=== PATIENT | female | born 1985 | race Caucasian/White ===

== ENCOUNTER 2019-01-07 10:43 | Emergency (ER) | payer SELFPAY ==
[~2019-01-07] VITALS: Ht 165.1 cm; Wt 136.1 kg
--- OUTSIDE RECORDS SUMMARY | 2019-01-07 10:46 | XMS REPORT ---
Author Author [facility] Address Unknown Phone Unavailable Care Team Providers Care Fluoroscope Operator Name Role Phone Unavailable Unavailable Payers Payer Name Policy Type Policy Number Effective Date Expiration Date Problems This patient has no known problems. Allergies, Adverse Reactions, Alerts Allergy Name Allergy Type Status Severity Reaction(s) Onset Date Inactive Date Treating Clinician Comments erythromycin base DA Active U 2018-12-20 00:00:00 erythromycin base DA Active U 2018-09-06 00:00:00 erythromycin base DA Active U 2018-05-26 00:00:00 erythromycin base DA Active U 2016-06-12 00:00:00 Medications This patient has no known medications. Results Test Description Test Time Test Comments Text Results Atomic Results Result Comments - CT ABD PELVIS W/O CONT 2018-09-17 07:36:00 Name: MIKHAIL ROGERS [facility] : 1985 Age/S: 33 / F [address] [facility] Unit #: [id number] Loc: [place] [address] Phys: Javier Collins MD Acct: [id number] Dis Date: Status: REG ER PHONE #: [phone] Exam Date: 09/17/2018 0710 FAX #: [phone] Reason: Right sided abd pain. EXAMS: CPT CODE: [id number] CT ABD PELVIS W/O CONT 22104 EXAM: CT of the abdomen and pelvis without contrast; INFORMATION: Right flank pain; TECHNIQUE AND FINDINGS: CT dose reduction protocol; 2.5 mm axial scans through the abdomen and pelvis without contrast; renal stone protocol; The right kidney is enlarged and there is mild right-sided hydronephrosis and hydroureter. This is caused by a 4 mm stone in the distal right ureter, near the UVJ. The left kidney is unremarkable; there is no evidence of lef t hydronephrosis or left renal or ureteral stones. The liver is moderately enlarged; no focal hepatic lesions; no abnormalities of the biliary system; pancreas, spleen and adrenal glands are unremarkable. A small splenule is seen near the pancreatic tail. No pelvic mass lesions; no abnormal fluid collections. Lung bases are clear. IMPRESSION: 1. 4 mm distal right ureteral stone causing mild hydronephrosis. 2. Mild hepatomegaly. at 0736 Reported and signed by: Kam Berrios M.D. CC: Javier Collins MD Technologist:TYRONE WATTS(Yifan),RDMS,CT CTDI: DLP: Trnscb Date/Time: 09/17/2018 (07) [email or web address] Orig Print D/T: S: 09/17/2018 (0739) CTDI: DLP: PAGE 1 Signed Report BASIC METABOLIC PANEL 2018-09-17 07:26:00 SODIUM (test code=NA) 140 mmol/L 135-148 POTASSIUM (test code=K) 3.9 mmol/L 3.5-5.1 CHLORIDE (test code=CL) 103 mmol/L 101-109 CARBON DIOXIDE (test code=CO2) 26.7 mmol/L 21-32 ANION GAP (test code=GAP) 14 mmol/L 10-20 GLUCOSE (test code=GLU) 138 mg/dL 74-106 BLOOD UREA NITROGEN (test code=BUN) 9 mg/dL 3-21 GLOMERULAR FILTRATION RATE (test code=GFR) > 60 mL/min >=60 Estimated GFR by using Modified MDRD formula.Chronic kidney disease is defined as either kidney damageor GFR <60 mL/min/1.73 m2 for >3 months. CREATININE (test code=CREAT) 0.85 mg/dL 0.55-1.3 BUN/CREATININE RATIO (test code=BUN/CREA) 10.6 10-20 CALCIUM (test code=CA) 8.6 mg/dL 8.4-10.2 HEPATIC FUNCTION [id number] 07:26:00* Test Item Value Reference Range Comments TOTAL PROTEIN (test code=PROT) 6.9 g/dL 6.5-8.4 ALBUMIN (test code=ALB) 3.1 g/dL 3.4-4.8 GLOBULIN (test code=GLOB) 3.8 G/DL 1-10 ALBUMIN/GLOBULIN RATIO (test code=A/G) 0.8 RATIO 0.75-1.50 BILIRUBIN TOTAL (test code=BILT) 0.30 mg/dL 0.0-1.0 BILIRUBIN DIRECT (test code=BILD) 0.10 mg/dL 0.0-0.30 SGOT/AST (test code=AST) 12 U/L 6-32 SGPT/ALT (test code=ALT) 31 U/L 12-78 Note: Change in REFERENCE RANGE due to new reagent method. ALKALINE PHOSPHATASE TOTAL (test code=ALKP) 74 U/L 38-126 [id number] 07:26:00* Test Item Value Reference Range Comments LIPASE (test code=LIP) 89 U/L 128-270 BASIC METABOLIC [id number] 07:21:00* Test Item Value Reference Range Comments SODIUM (test code=NA) 140 mmol/L 135-148 POTASSIUM (test code=K) 3.9 mmol/L 3.5-5.1 CHLORIDE (test code=CL) 103 mmol/L 101-109 CARBON DIOXIDE (test code=CO2) 26.7 mmol/L 21-32 ANION GAP (test code=GAP) 14 mmol/L 10-20 GLUCOSE (test code=GLU) 138 mg/dL 74-106 BLOOD UREA NITROGEN (test code=BUN) 9 mg/dL 3-21 GLOMERULAR FILTRATION RATE (test code=GFR) > 60 mL/min >=60 Estimated GFR by using Modified MDRD formula.Chronic kidney disease is defined as either kidney damageor GFR <60 mL/min/1.73 m2 for >3 months. CREATININE (test code=CREAT) 0.85 mg/dL 0.55-1.3 BUN/CREATININE RATIO (test code=BUN/CREA) 10.6 10-20 CALCIUM (test code=CA) mg/dL 8.4-10.2 HEPATIC FUNCTION [id number] 07:21:00* Test Item Value Reference Range Comments TOTAL PROTEIN (test code=PROT) 6.9 g/dL 6.5-8.4 ALBUMIN (test code=ALB) 3.1 g/dL 3.4-4.8 GLOBULIN (test code=GLOB) 3.8 G/DL 1-10 ALBUMIN/GLOBULIN RATIO (test code=A/G) 0.8 RATIO 0.75-1.50 BILIRUBIN TOTAL (test code=BILT) 0.30 mg/dL 0.0-1.0 BILIRUBIN DIRECT (test code=BILD) 0.10 mg/dL 0.0-0.30 SGOT/AST (test code=AST) 12 U/L 6-32 SGPT/ALT (test code=ALT) 31 U/L 12-78 Note: Change in REFERENCE RANGE due to new reagent method. ALKALINE PHOSPHATASE TOTAL (test code=ALKP) 74 U/L 38-126 [id number] 07:21:00* Test Item Value Reference Range Comments LIPASE (test code=LIP) 89 U/L 128-270 CBC W/O [id number] 07:00:00* Test Item Value Reference Range Comments WHITE BLOOD CELL (test code=WBC) 10.7 K/mm3 4.5-12.5 RED BLOOD CELL (test code=RBC) 4.87 mill/mm3 3.7-5.2 HEMOGLOBIN (test code=HGB) 13.6 gram/dL 11.5-15.5 HEMATOCRIT (test code=HCT) 41.9 % 36.0-46.0 MEAN CELL VOLUME (test code=MCV) 86.0 fL 80-98 MEAN CELL HGB (test code=MCH) 27.9 picogram 27.0-33.0 MEAN CELL HGB CONCETRATION (test code=MCHC) 32.5 gram/dL 33.0-36.0 RED CELL DISTRIBUTION WIDTH (test code=RDW) 14.6 % 11.6-16.2 RED CELL DISTRIBUTION WIDTH SD (test code=RDW-SD) 44.2 fL 39.1-52.0 PLATELET COUNT (test code=PLT) 331 K/mm3 150-450 MEAN PLATELET VOLUME (test code=MPV) 9.2 fL 6.7-11.0 URINALYSIS [id number] 06:51:00* Test Item Value Reference Range Comments UA COLOR (test code=COLU) YELLOW YELLOW UA APPEARANCE (test code=APPU) HAZY CLEAR UA GLUCOSE DIPSTICK (test code=DGLUU) norm mg/dL NEGATIVE UA BILIRUBIN DIPSTICK (test code=BILU) NEGATIVE mg/dL NEGATIVE UA KETONE DIPSTICK (test code=KETU) neg mg/dL NEGATIVE UA SPECIFIC GRAVITY (test code=SGU) 1.030 1.001-1.035 UA BLOOD DIPSTICK (test code=NBA) 250 (4+) Marck/uL NEGATIVE UA PH DIPSTICK (test code=LISETTE) 5.0 5.0-8.0 UA PROTEIN DIPSTICK (test code=PROU) 30 (1+) mg/dL Neg-15 UA UROBILINIOGEN DIPSTICK (test code=URO) norm mg/dL 0.0-0.2 UA NITRITE DIPSTICK (test code=MARIBEL) NEGATIVE NEGATIVE UA LEUKOCYTE ESTERASE DIPSTICK (test code=LEUU) 100/uL (2+) uL NEGATIVE UA WBC (test code=WBCU) 6-10 per HPF 0-5 UA RBC (test code=RBCU) 50-100 per HPF 0-5 UA EPITHELIAL CELLS (test code=EPIU) MODERATE per HPF Few UA BACTERIA (test code=BACU) MODERATE per HPF NONE Urine Source? Clean CatchUR HCG [id number] 06:51:00* Test Item Value Reference Range Comments UR HCG QUAL (test code=HCGQLU) NEGATIVE This HCGQL test is NOT applicable for MALE patients.Check with nurse about probable order error.If Tumor Marker Test needed, nurse should order test "HCGTU"(Test #550.59332) Urine Source? Clean CatchURINALYSIS [id number] 06:47:00* Test Item Value Reference Range Comments UA COLOR (test code=COLU) YELLOW YELLOW UA APPEARANCE (test code=APPU) HAZY CLEAR UA GLUCOSE DIPSTICK (test code=DGLUU) norm mg/dL NEGATIVE UA BILIRUBIN DIPSTICK (test code=BILU) NEGATIVE mg/dL NEGATIVE UA KETONE DIPSTICK (test code=KETU) neg mg/dL NEGATIVE UA SPECIFIC GRAVITY (test code=SGU) 1.030 1.001-1.035 UA BLOOD DIPSTICK (test code=NBA) 250 (4+) Marck/uL NEGATIVE UA PH DIPSTICK (test code=LISETTE) 5.0 5.0-8.0 UA PROTEIN DIPSTICK (test code=PROU) 30 (1+) mg/dL Neg-15 UA UROBILINIOGEN DIPSTICK (test code=URO) norm mg/dL 0.0-0.2 UA NITRITE DIPSTICK (test code=MARIBEL) NEGATIVE NEGATIVE UA LEUKOCYTE ESTERASE DIPSTICK (test code=LEUU) 100/uL (2+) uL NEGATIVE UA WBC (test code=WBCU) per HPF 0-5 UA RBC (test code=RBCU) per HPF 0-5 UA EPITHELIAL CELLS (test code=EPIU) per HPF Few UA BACTERIA (test code=BACU) per HPF NONE Urine Source? Clean CatchUR HCG [id number] 06:47:00* Test Item Value Reference Range Comments UR HCG QUAL (test code=HCGQLU) Urine Source? Clean CatchURINALYSIS [id number] 06:47:00* Test Item Value Reference Range Comments UA COLOR (test code=COLU) YELLOW YELLOW UA APPEARANCE (test code=APPU) HAZY CLEAR UA GLUCOSE DIPSTICK (test code=DGLUU) norm mg/dL NEGATIVE UA BILIRUBIN DIPSTICK (test code=BILU) NEGATIVE mg/dL NEGATIVE UA KETONE DIPSTICK (test code=KETU) neg mg/dL NEGATIVE UA SPECIFIC GRAVITY (test code=SGU) 1.030 1.001-1.035 UA BLOOD DIPSTICK (test code=NBA) 250 (4+) Marck/uL NEGATIVE UA PH DIPSTICK (test code=LISETTE) 5.0 5.0-8.0 UA PROTEIN DIPSTICK (test code=PROU) 30 (1+) mg/dL Neg-15 UA UROBILINIOGEN DIPSTICK (test code=URO) norm mg/dL 0.0-0.2 UA NITRITE DIPSTICK (test code=MARIBEL) NEGATIVE NEGATIVE UA LEUKOCYTE ESTERASE DIPSTICK (test code=LEUU) 100/uL (2+) uL NEGATIVE UA WBC (test code=WBCU) per HPF 0-5 UA RBC (test code=RBCU) per HPF 0-5 UA EPITHELIAL CELLS (test code=EPIU) per HPF Few UA BACTERIA (test code=BACU) per HPF NONE Urine Source? Clean CatchUR HCG [id number] 06:47:00* Test Item Value Reference Range Comments UR HCG QUAL (test code=HCGQLU) NEGATIVE This HCGQL test is NOT applicable for MALE patients.Check with nurse about probable order error.If Tumor Marker Test needed, nurse should order test "HCGTU"(Test #550.21767) Urine Source? Clean Catch- XR CHEST 1 [id number] 13:07:00 Name: MIKHAIL ROGERS [facility] : 1985 Age/S:33 /F [address] [facility] Unit#:[id number] Loc: [place] [address] Phys: Ady Gilliam MD Dis Date: PHONE #: [phone] Status: REG ER FAX #: [phone] Exam Date: 08/12/2018 Re ason: chest pain, asthma attack EXAMS: CPT CODE: [id number] XR CHEST 1 V 43175 HISTORY: Chest pain and asthma attack. COMPARISON: July 09, 2018. No acute infiltrates, effusion or congestion is noted. The cardiac and mediastinal si lhouette are within normal limits. IMPRESSION: No acute infiltrates, effusion or congestion. Electronically Sign ed by Quang Paez on 08/12/2018 at 1307 Reported a nd signed by: Ryland Paez M.D. CC: Ady Gilliam MD Technologist: CARLITA COPE, RT(R),CT Trnscrpt Data: 08/12/2018 (5567) [email or web address] Orig Print D/T: S: 08/12/2018 (6854) PAGE 1 Signed Report - XR CHEST 1 [id number] 09:57:00 Name: MIKHAIL ROGERS [facility] : 1985 Age/S:33 /F [address] [facility] Unit#:[id number] Loc: [place] [address] Phys: Lucas Finley MD Dis Date: PHONE #: [phone] Status: REG ER FAX #: [phone] Exam Date: 07/09/2018 Reason: cough, smoker EXAMS: CPT CODE: [id number] XR CHEST 1 V 16535 HISTORY: Cough and smoker. COMPARISON: Chest x-ray from November 09, 2013. No acute infiltrates, effusion or congestion is noted. The cardiac and mediastinal silhouette are within normal limits. IMPRESSION: No acute infiltrates, effusion or congestion. at 0957 Reported and signed by: Ryland Paez M.D. CC: Lucas Finley MD Technologist: CARLITA COPE, RT(R),CT Trnscrpt Data: 07/09/2018 (0957) [email or web address] Orig Print D/T: S: 07/09/2018 (1001) PAGE 1 Signed Report
[2019-01-07] MEDS ORDERED: HYDROCODONE/APAP 10MG-325MG TAB PO ONE (11:30)
--- NOTE | 2019-01-07 12:47 | Diagnostic Imaging Report ---
EXAMINATION: ELBOW LEFT COMPLETE INDICATION: Elbow pain COMPARISON: None FINDINGS: 3 views of the left elbow demonstrate no acute fracture or dislocation. Alignment is anatomic. No elbow joint effusion. The soft tissues appear unremarkable. IMPRESSION: No acute osseous injury of the left elbow. Signed by: Anyi Choi MD on 01/07/2019 12:44 PM
== END 2019-01-07 13:01 | disposition home or self-care (01) ==
LOC: EDBD 10:43 → ER 10:43
DX: S50.02XA Contusion of left elbow, initial encounter (principal); M25.512 Pain in left shoulder; Y93.B9 Activity, other involving muscle strengthening exercises; X50.1XXA Overexertion from prolonged static or awkward postures, initial encounter; Y92.89 Other specified places as the place of occurrence of the external cause; J45.909 Unspecified asthma, uncomplicated
CPT/HCPCS: 99283

== ENCOUNTER 2019-08-11 22:28 | Emergency (ER) | payer SELFPAY ==
[~2019-08-11] VITALS: Ht 165.1 cm; Wt 136.1 kg
--- NOTE | 2019-08-11 22:46 | NUR ---
patient denied offer for shoulder xray
[2019-08-11] MEDS ORDERED: DIAZEPAM 5 MG TAB ONE (22:54)
[2019-08-11] MEDS ORDERED: DIAZEPAM 2 MG TAB PO ONE (23:00)
== END 2019-08-11 22:54 | disposition home or self-care (01) ==
LOC: ER 22:28
DX: M25.511 Pain in right shoulder (principal); M75.51 Bursitis of right shoulder
CPT/HCPCS: 99282